=== PATIENT | female | born 1980 | race Caucasian/White ===

== ENCOUNTER 2021-04-21 09:18 | Outpatient (REF) | payer MEDICAID, SELFPAY ==
[2021-04-21 10:08] LABS: COVID-19 Test Positive (Negative); IDNOW Serial# 16C4AD1C
== END 2021-04-21 09:19 | disposition home or self-care (01) ==
LOC: HO.LAB 09:18
PROVIDERS: Visit Provider Internal Medicine
DX: Z20.822 Contact with and (suspected) exposure to COVID-19 (principal)
CPT/HCPCS: 87635; C9803

== ENCOUNTER 2023-08-28 08:34 | Emergency (ER) | payer MEDICAID, SELFPAY ==
[2023-08-28 09:18] VITALS: BP 113/85; PULSE 85; RESP 18; TEMP 36.8; O2SAT 98; BMI 34.6
[2023-08-28 09:56] LABS: MANUAL DIFF FLAG NO
[2023-08-28 10:08] LABS: Basophils Percent Auto 0.5 % (0-2); Eosinophils Percent Auto 0.4 % (0-4); Hemoglobin 14.3 g/dl (12.0-16.0); Imm Gran Abs Auto 0.02 X10*3/uL (0.00-0.03); Imm Gran Pct Auto 0.2 % (0.0-0.4); Lymphocytes Absolute Auto 1.9 X10*3/uL (1.2-4.9); Lymphocytes Percent Auto 23.3 % (20-40); Mean Corpuscular Hemoglobin 30.8 pg (27.0-33.0); Mean Corpuscular Volume 90.3 fL (80.0-98.0); Mean Platelet Volume 10.1 fL (9.4-12.3); Monocytes Absolute Auto 0.7 X10*3/uL (0.1-1.2); Monocytes Percent Auto 8.4 % (2-11); Neutrophils Absolute Auto 5.4 x10*3/uL (2.0-8.3); Neutrophils Percent Auto 67.2 % (45-73); Platelet Count 290 X10*3/uL (160-400); Red Blood Count 4.65 X10*6/uL (4.20-5.50); Red Cell Distribution Width 13.1 % (11.0-16.0); White Blood Count 8.1 X10*3/uL (4.8-10.8)
[2023-08-28 10:16] LABS: Alanine Aminotransferase 18 U/L (0-31); Albumin Level 4.3 g/dL (3.5-5.0); Alkaline Phosphatase 63 U/L (39-117); Anion Gap 14 (12-20); Aspartate Amino Transferase 20 U/L (5-31); Bilirubin Total 0.5 mg/dL (0.0-1.0); Blood Urea Nitrogen 9 mg/dL (9-16); Calcium 8.9 mg/dL (8.4-10.2); Carbon Dioxide 21 mmol/L (22-29); Chloride 110 mmol/L (96-108); Creatinine Clr Calc Pharmacy 112.5; Estimated Glomerular Filt Rate > 60; Glucose Random 101 mg/dL (60-115); Potassium 4.5 mmol/L (3.3-5.1); Sodium 140 mmol/L (135-145); Total Protein 7.2 g/dL (6.5-8.0)
--- NOTE | 2023-08-28 11:29 | ED_ITS ---
HPI - Dental/Oral General Chief complaint: Dental/Oral Stated complaint: Swelling R side of face Time Seen by Provider: 08/28/23 11:19 Source: patient and RN notes reviewed Mode of arrival: ambulatory Limitations: no limitations History of Present Illness ED Provider: Dorie Hurst PA-C HPI Narrative: This is a 43-year-old female who presents to the emergency department with complaints of right upper dental pain since yesterday. Patient reports that she has poor dentition and states that yesterday she noticed pain to her upper tooth. She states that when she woke up in the middle of the night she felt right-sided facial swelling. She has been taking ibuprofen and Tylenol for her symptoms which has provided her with some relief. She has also been gargling with diluted hydrogen peroxide and saltwater with some relief. She does not have a dentist at this time. She denies any fevers or chills. No other complaints or concerns at this time. MD Complaint: tooth pain Location: Tooth # (3) Onset (ago): day(s) Duration: constant Severity: moderate Relieving factors: NSAIDs Exacerbating factors: chewing Context: history of dental caries and poor dental care Associated symptoms: gum swelling Treatment prior to arrival: none Related Data Previous Rx's ?Medication ?Instructions ?Recorded acetaminophen 500 mg tablet 500 mg PO Q6H PRN fever or pain 08/28/23 (Tylenol Extra Strength) #30 tabs clindamycin HCl 300 mg capsule 300 mg PO TID 7 days #21 caps 08/28/23 ibuprofen 600 mg tablet 600 mg PO Q6H PRN fever or pain 08/28/23 #30 tabs Allergies Allergy/AdvReac Type Severity Reaction Status Date / Time Sulfa (Sulfonamide Allergy Unknown HIVES, rash Verified 08/28/23 09:22 Antibiotics) [Sulfa (Sulfonamides)] amoxicillin Allergy Rash Verified 08/28/23 11:41 Sulfas Allergy Unknown Hives Uncoded 08/28/23 09:22 Review of Systems 2 Review of Systems: Yes all other systems are reviewed and are negative PMFSH Past Medical History Attestation statement: The following information was validated with the patient. Social History Social History Advance Directives: No Advance Directives Information Provided: No Physical Exam 2 Vital Signs: Vital Signs: Last Vital Signs Temp 97.8 F 08/28/23 12:15 Pulse 63 08/28/23 12:15 Resp 18 08/28/23 12:15 BP 119/82 08/28/23 12:15 Pulse Ox 97 08/28/23 12:15 O2 Del Method Room Air 08/28/23 12:15 BMI result Body Mass Index 34.6 Course Reevaluation(s) Reevaluation #1: needle aspiration performed on dental abscess with moderate amount of purulence expressed. Tolerated well. Sxs consistent with dental abscess. d/c on clindamycin due to allergy and given dental referrall. Given return precautions. Pt stable for d.c. Medical Decision Making Medical Decision Making MDM Narrative: This is a 43-year-old female who presents emergency department with complaints of right upper dental pain and right-sided facial swelling since yesterday. She noticed some pain yesterday and noticed this morning her right side of her face was swollen. On arrival, vital signs within normal limits. She is speaking full sentences, she is afebrile nontoxic-appearing. Right side of face is moderately edematous. Poor dentition throughout, right upper tooth 3 and 4 tender to palpation, broken, with periapical abscess noted. Abscess is fluctuant therefore will attempt to drain. Differential Diagnosis Differential Diagnoses: The differential diagnosis associated with the presentation includes Dental abscess, dental decay, dental caries, facial swelling Lab Data 08/28/23 09:51 08/28/23 09:51 Labs: Lab Results 08/28/23 Range/Units 09:51 WBC 8.1 (4.8-10.8) X10*3/uL RBC 4.65 (4.20-5.50) X10*6/uL Hgb 14.3 (12.0-16.0) g/dl Hct 42.0 (37.0-47.0) % MCV 90.3 (80.0-98.0) fL MCH 30.8 (27.0-33.0) pg MCHC 34.0 (31.0-35.0) g/dl RDW 13.1 (11.0-16.0) % Plt Count 290 (160-400) X10*3/uL MPV 10.1 (9.4-12.3) fL Immature Gran % (Auto) 0.2 (0.0-0.4) % Neut % (Auto) 67.2 (45-73) % Lymph % (Auto) 23.3 (20-40) % Hunt % (Auto) 8.4 (2-11) % Eos % (Auto) 0.4 (0-4) % Baso % (Auto) 0.5 (0-2) % Lymph # (Auto) 1.9 (1.2-4.9) X10*3/uL Hunt # (Auto) 0.7 (0.1-1.2) X10*3/uL Eos # (Auto) 0.0 (0.0-0.4) X10*3/uL Baso # (Auto) 0.0 (0.0-0.2) X10*3/uL Abs Immat Gran (auto) 0.02 (0.00-0.03) X10*3/uL Absolute Neuts (auto) 5.4 (2.0-8.3) x10*3/uL Absolute Nucleated RBC 0.000 (0.0-0.012) X10*3/uL Nucleated RBC % (auto) 0.0 (0.0-0.2) /100WBC Sodium 140 (135-145) mmol/L Potassium 4.5 (3.3-5.1) mmol/L Chloride 110 H (96-108) mmol/L Carbon Dioxide 21 L (22-29) mmol/L Anion Gap 14 (12-20) BUN 9 (9-16) mg/dL Creatinine 0.68 (0.5-1.4) mg/dL Estim Creat Clear Calc 112.5 Estimated GFR > 60 Random Glucose 101 (60-115) mg/dL Calcium 8.9 (8.4-10.2) mg/dL Total Bilirubin 0.5 (0.0-1.0) mg/dL AST 20 (5-31) U/L ALT 18 (0-31) U/L Alkaline Phosphatase 63 (39-117) U/L Total Protein 7.2 (6.5-8.0) g/dL Albumin 4.3 (3.5-5.0) g/dL Procedures Abscess I/D Site: oral Side (if applicable): right Local Anesthetic: other anesthetic (topical lidocaine (lollicane)) Technique: needle aspiration Amount of fluid expressed (mL): 4 Sent for culture/gram staining?: No Irrigation: Yes Packing used?: none Discharge Plan Discharge Clinical Impression: Gingival abscess, Dental abscess Patient Disposition: Home, Self-Care Instructions: Gingivitis (ED) Additional Instructions: You were seen in the emergency department due to a dental infection. You had an abscess in your right upper gumline that we drained. Keep performing saltwater rinses with warm water. Take prescribed clindamycin as directed finish the entire course even if you are feeling better. Alternate between ibuprofen and Tylenol as needed for pain. If any new or worsening symptoms occur including but not limited to fevers, worsening swelling, difficulty opening and closing her jaw, difficulty swallowing or breathing, please return for re-evaluation. [facility] [phone] [place] [address] Prescriptions: New clindamycin HCl 300 mg capsule 300 mg PO TID 7 Days Qty: 21 0RF ibuprofen 600 mg tablet 600 mg PO Q6H PRN (Reason: fever or pain) Qty: 30 0RF acetaminophen [Tylenol Extra Strength] 500 mg tablet 500 mg PO Q6H PRN (Reason: fever or pain) Qty: 30 0RF Interventions: ED Discharge Assessment Last Done: 08/28/23 12:15 Discharge Date/Time: 08/28/23 12:17 Print Language: Greenlandic
[2023-08-28 12:15] VITALS: BP 119/82; PULSE 63; RESP 18; TEMP 36.6; O2SAT 97
== END 2023-08-28 12:17 | disposition home or self-care (01) ==
PROVIDERS: Emergency Provider Student in an Organized Health Care Education/Training Program
DX: K04.7 Periapical abscess without sinus (principal); K05.20 Aggressive periodontitis, unspecified
CPT/HCPCS: 10160; 36415; 80053; 85025; 99282; 99283

== ENCOUNTER 2024-06-20 09:54 | Outpatient (REF) | payer MEDICAID, SELFPAY ==
[2024-06-20 11:15] LABS: MANUAL DIFF FLAG NO
--- OUTSIDE RECORDS SUMMARY | 2024-06-20 11:18 | XMS_ITS | Encounter Summary ---
Author Organization [employer] Address [address] [facility] 7 [place] [address] Care Team Providers Care Lockstitch Machine Operator Name Role Phone Unavailable Primary Care Provider Unavailabl e Reason for Visit * Reason Comments Pre-visit Planning SDOH Screening negat sanjeev and Tobacco screening positive Encounter Details Date Type Department Care Team ([facility] st Contact Info) Description 06/12/2024 Patient Outreach [facility] [address] [place] [address] Tish Montague NP [address] [place] [address] Pre-visit Planning (SDOH Screening negative and Tobacco screening positive) Social History Tobacco Use Types Packs/Day Years Used Date Smoking Tobacco: Never Assessed Housing Stability Answer Date Recorded What is your housing situation today? I have radha quintana 06/12/[address] you li ve. Do you have problems with any of the following? None of the above 06/12/2024 Food Insecurity Answer Date Recorded Within the past 12 months, y ou worried that your food would run out before you got money to buy more: Never True 06/12/2024 Within the past 12 months,th e food you bought just didn't last and you didn't have enough money to get more: Never True 02/2025 Transportation Answer Date Recorded In the past 12 months, has l ack of transportation kept you from medical appts, meetings, work or from getting things needed for daily living? No 06/12/2024 Utilities Answer Date Recorded In the past 12 months, has t he electric, gas, oil or water company threatened to shut off services in your home? No 06/12/2024 Internet Access Answer Date Recorded Internet Access Q1 Yes 06/12/2024 Internet Access Q2 Not on file 06/12/2024 Comments Unknown Sex and Gender Information Value Date Recorded Sex Assigned at Female 01/31/2024 1:41 PM EDT Legal Sex Female 1:39 PM EDT Gender Identity Female 01/31/2024 1:41 PM EDT Sexual Orientation Don't know 01/31/2024 1: 58 PM EDT documented as of this encounter Progress Notes * Tana Espinal - 06/12/2024 12:45 PM EDT ALLIE Mackenzie placed successful outbound call to patient for pre-visit planning. Patient name and confirmed. Patient confirms appt date and time, and has transportation arrangements. Biggest concern for appointment at this time is hernia on stomach over 5 years, ? Diabetes. Patient advised to bring to appointment a photo id and insurance card. Appropriate screenings completed in anticipation of appointment. Tobacco screening positive. Will need counseling. documented in this encounter Plan of Treatment Not on file documented as of this encounter Visit Diagnoses Not on filedocumented in this encounter
--- OUTSIDE RECORDS SUMMARY | 2024-06-20 11:18 | XMS_ITS | Encounter Summary ---
Author Organization [employer] Address [address] [facility] 7t [place] [address] Care Team Providers Care Restaurant Hourly Team Member Name Role Phone Tish Montague NP Primary Care Provider [phone] Reason for Referral * Imaging (Routine) - Authorized Specialty Diagnoses / Procedures Referred By Contngoc t Referred To Contact Radiology Diagnoses Mass of soft tissue of abdomen Procedures US SOFT TISSUE Tish Montague NP [address] [place] [address] Phone: tel: fax: [address] Phone: tel: fax: Referral ID Status Reason Start Date Expiration Date V isits Requested Visits Authorized [id number] Authorized 06/20/2024 06/20/2025 1 1 Encounter Details Date Type Department Care Team (Latest Contact Info) Description 06/20/2024 9:00 AM EDT Office Visit [facility] [address] [place] [address] Tish Montague NP [address] [place] [address] Hyperglycemia (Primary Dx); Dietary counseling; Exercise counseling; Mass of soft tissue of abdomen; Other depression Social History Tobacco Use Types Packs/Day Years Used Date Smoking Tobacco: Every Day Cigarettes Tobacco Cessation:Ready to Q uit: Not Asked; Counseling Given: Not Answered Depression Answer Date Recorded Patient Health Questionnaire-9 Score 8 06/20/2024 Patient Health Questionnaire-9 Score 8 06/20/2024 Last PHQ-9: Questionnaire Data Not on file 0 06/20/2024 Housing Stability Answer Date Recorded What is [...] off services in your home? No 06/12/2024 Depression Answer Date Recorded Patient Health Questionnaire-2 Score 2 06/20/2024 Internet Access Answer Date Recorded Internet Access Q1 Yes 06/12/2024 Internet Access Q2 Not on file 06/12/2024 Comments Unknown Sex and Gender Information Value Date Recorded Sex Assigned at Female 01/31/2024 1:41 PM EDT Legal Sex Female 1:39 PM EDT Gender Identity Female 01/31/2024 1:41 PM EDT Sexual Orientation Don't know 01/31/2024 1: 58 PM EDT documented as of this encounter Last Filed Vital Signs Vital Sign Reading Time Taken Comments Blood Pressure 115/84 06/20/2024 9:03 AM EDT Pulse 90 06/20/2024 9:03 AM EDT Temperature 36.3 ??C (97.4 ??F) 06/20/2024 9:03 AM ED T Respiratory Rate 18 06/20/2024 9:03 AM EDT Oxygen Saturation 98% 06/20/2024 9:03 AM EDT Inhaled Oxygen Concentration - - Weight 96.4 kg (212 lb 9.6 oz) 06/20/2024 9:03 A M EDT Height 157.5 cm (5' 2 ) 06/20/2024 9:03 AM EDT Body Mass Index 38.89 06/20/2024 9:03 AM EDT documented in this encounter Plan of Treatment Scheduled Orders Name Type Priority Associated Diagnoses Orde r Schedule US SOFT TISSUE Imaging Routine Mass of soft tissue of abdomen Expected: 06/20/2024, Expires: 06/20/2025 Comprehensive Metabolic Panel Lab Routine Hyperglycemia Other depression Expected: 06/20/2024 (Approximate), Expires: 06/20/2025 CBC auto differential Lab Routine Hyperglycemia Other depression Expected: 06/20/2024 (Approximate), Expires: 06/20/2025 Hemoglobin A1c Lab Routine Hyperglycemia Other depression Expected: 06/20/2024 (Approximate), Expires: 06/20/2025 Lipid Panel, Standard Lab Routine Hyperglycemia Other depression Expected: 06/20/2024 (Approximate), Expires: 06/20/2025 documented as of this encounter Procedures Procedure Name Priority Date/Time Associated Diagnosis Comments POCT GLYCATED HEMOGLOBIN, TOTAL Routine 06/20/2024 9:23 AM EDT Hyperglycemia POCT GLUCOSE Routine 06/20/2024 9:23 AM EDT Hyperglycemia documented in this encounter Results * (ABNORMAL) POCT HGB A1C (06/20/2024 9:23 AM EDT) Hemoglobin A1C 6.1(A) 4.0 - 6.0 % QC Media Lot # [id number] Lot# Expiration Date 110,426 Blood 06/20/2024 9:23 AM EDT us Tish Montague NP POINT OF CARE TEST ENTER/EDIT OR DERABLES Final Result * POCT Glucose (06/20/2024 9:23 AM EDT) Glucose Blood, POC 121 60 - 200 mg/dL QC Media Lot # [id number] Lot# Expiration Date 82,625 Blood Capillary blood specimen / Unknown 06/20/2024 9:23 AM EDT us Tish Montague NP POINT OF CARE TEST ENTER/EDIT OR DERABLES Final Result documented in this encounter Visit Diagnoses Diagnosis Hyperglycemia- Primary Other abnormal glucose Dietary counseling Dietary surveillance and counseling Exercise counseling Mass of soft tissue of abdomen Other depression documented in this encounter Additional Health Concerns Assessment Noted Time PHQ-9 Depression Total Score: 8 06/21/19 25 9:26 AM EDT documented as of this encounter Care Teams Restaurant Hourly Team Member Relationship Specialty Start Date End Date Tish Montague NP [address] [place] [address] PCP - General Family Medicine 06/20/24 documented as of this encounter
--- OUTSIDE RECORDS SUMMARY | 2024-06-20 11:18 | XMS_ITS | Clinical Summary ---
Author Organization [employer] [facility] Address [address] [facility] 7t [place] [address] Care Team Providers Care Engineering Test Mechanic Name Role Phone Tish Montague NP Primary Care Provider [phone] Allergies Active Allergy Reactions Criticality Noted Date Comments Sulfa Antibiotics Unknown 06/20/2024 Medications buPROPion SR (Wellbutrin SR) 100 MG 12 hr tablet Take 1 tablet (100 mg) by mouth Once per day for 3 days, THEN 1 tablet (100 mg) 2 times daily for 27 days. Do not crush, chew, or split.. 57 tablet 06/20/2024 Active Active Problems Problem Noted Date Diagnosed Date Hyperglycemia 06/20/2024 Exercise counseling 06/20/2024 Dietary counseling 06/20/2024 Mass of soft tissue of abdomen 06/20/2024 Depression 06/20/2024 Encounters Date Type Department Care Team Description 06/20/2024 9:00 AM EDT Office Visit [facility] [address] [place] [address] [phone] Tish Montague NP Hyperglycemia (Primary Dx); Dietary counseling; Exercise counseling; Mass of soft tissue of abdomen; Other depression 06/20/2024 Travel 06/15/2024 Population Health Risk Score [facility] (C3) Department [address] [id number] Provider, Population Health Generic 06/12/2024 Patient Outreach [facility] [address] [place] [phone] Tish Montague NP Pre-visit Planning (SDOH Screening negative and Tobacco screening positive) 06/06/2024 Telephone [facility] [address] [place] [phone] Laila Harrell MA Chart Prep 04/06/2024 Telephone [facility] [address] [place] [address] [phone] Harjit Stock MD New pt appt from Last 3 Months Social History Tobacco Use Types Packs/Day Years [...] your housing situation today? I have radha sing 06/12/[address] you li [...] Don't know 01/31/2024 1: 58 PM EDT Last Filed Vital Signs Vital Sign Reading [...] Mass Index 38.89 06/20/2024 9:03 AM EDT Plan of Treatment Health Maintenance Due Date Last Done Comments HIV Screening 1980 Lipid Panel 1980 Family Planning (PISQ) 1995 Hepatitis C Screening 1998 Hepatitis B Vaccines (1 of 3 - 19+ 3-dose series) 1999 Pneumococcal Vaccine: Pediatrics (0 to 5 Years) and At-Risk Patients (6 to 49) Years) (1 of 2 - PCV) 1999 Pap Smear 2001 Cervical Cancer Screening 2010 HPV/Cotest 2010 Mammogram 2020 COVID-19 Vaccine (3 - 2023-2 5 season) 2023 05/26/2021, 05/05/2021 Influenza Vaccine (#1) 2023 Alcohol/Substance Use Screening 06/20/2025 06/20/2024 Depression Screening 06/20/2025 06/20/2024, 06/20/2024 Diabetes: Hemoglobin A1C 06/20/2025 06/20/2024 SDOH Screening 06/20/2025 06/20/2024 Tobacco Screening 06/20/2025 06/20/2024 DTaP/Tdap/Td Vaccines (2 - T d or Tdap) 08/09/2028 08/09/2018 Zoster Vaccines (1 of 2) 2030 RSV Patients and Patients Aged 60 years or older (1 - 1-dose 75+ series) 2055 HIB Vaccines Aged Out No longer eligi ble based on patient's age to complete this topic HPV Vaccines Aged Out No longer eligi ble based on patient's age to complete this topic Hepatitis A Vaccines Aged Out No long er eligible based on patient's age to complete this topic IPV Vaccines Aged Out No longer eligi ble based on patient's age to complete this topic Meningococcal Vaccine Aged Out No isrrael meagan eligible based on patient's age to complete this topic RSV under 20 months Aged Out No longe r eligible based on patient's age to complete this topic Rotavirus Vaccines Aged Out No longer eligible based on patient's age to complete this topic Procedures Procedure Name Priority Date/Time Associated Diagnosis Comments POCT GLYCATED HEMOGLOBIN, TOTAL Routine 06/20/2024 9:23 AM EDT Hyperglycemia POCT GLUCOSE Routine 06/20/2024 9:23 AM EDT Hyperglycemia from Last 3 Months Results * (ABNORMAL) POCT HGB A1C (06/20/2024 9:23 AM EDT) Hemoglobin A1C 6.1(A) 4.0 - 6.0 % QC Media Lot # [id number] Lot# Expiration Date 110,426 Blood 06/20/2024 9:23 AM EDT Tish Montague MEDICAL APPOINTMENT SCHEDULER POINT OF CARE TEST ENTER/EDIT OR DERABLES Final Result * POCT Glucose (06/20/2024 9:23 AM EDT) Glucose Blood, POC 121 60 - 200 mg/dL QC Media Lot # [id number] Lot# Expiration Date 82,625 Blood Capillary blood specimen / Unknown 06/20/2024 9:23 AM EDT Tish Montague MEDICAL APPOINTMENT SCHEDULER POINT OF CARE TEST ENTER/EDIT OR DERABLES Final Result from Last 3 Months Insurance [facility] C3 Care Teams Engineering Test Mechanic Relationship Specialty Start Date End Date Tish Montague NP [address] [place] [address] PCP - General Family Medicine 06/20/24
--- OUTSIDE RECORDS SUMMARY | 2024-06-20 11:18 | XMS_ITS | Encounter Summary ---
Author Organization [employer] Address [address] [facility] [address]t [place] [address] Care Team Providers Care Baby Registry Sales Consultant Name Role Phone Unavailable Primary Care Provider Unavailabl e Encounter Details Date Type Department Care Team (Late st Contact Info) Description 06/15/2024 Population Health Risk Score [facility] (C3) Department [address] [facility] [address] [place] [address] Provider, Population Health Generic Social History Tobacco Use Types Packs/Day Years Used Date Smoking Tobacco: Never Assessed Housing Stability Answer Date Recorded What is your housing situation today? I have radah quintana 06/12/[address] you [...] PM EDT documented as of this encounter Plan of Treatment Not on file documented as of this encounter Visit Diagnoses Not on filedocumented in this encounter
--- OUTSIDE RECORDS SUMMARY | 2024-06-20 11:18 | XMS_ITS | Encounter Summary ---
Author Organization [employer] Address [address] [facility] 7t [place] [address] Care Team Providers Care Community Arts Officer Name Role Phone SmileyTish catnu RAVINDRA Primary Care Provider [phone] Encounter Details Date Type Department Care Team (Latest Contact Info) Description 06/20/2024 Travel Social History Tobacco Use Types Packs/Day Years Used Date Smoking Tobacco: Every Day Cigarettes Depression Answer Date Recorded Patient Health Questionnaire-9 [...] Diagnoses Not on filedocumented in this encounter Additional Health Concerns Assessment Noted Time PHQ-9 Depression Total Score: 8 06/21/19 9:26 AM EDT documented as of this encounter Care Teams Community Arts Officer Relationship Specialty Start Date End Date Tish Montague NP [address] [place] [phone] PCP - General Family Medicine 06/20/24 documented as of this encounter
--- OUTSIDE RECORDS SUMMARY | 2024-06-20 11:18 | XMS_ITS | Encounter Summary ---
Author Organization [employer] Address [address] [place] [address] 7 [place] [address] Care Team Providers Care Clinical Ob Name Role Phone Unavailable Primary Care Provider Unavailabl e Reason for Visit * Reason Onset Date Comments Chart Prep 06/06/2024 Encounter Details Date Type Department Care Team (Late st Contact Info) Description 06/06/2024 Telephone [facility] [address] [place] [address] Laila Harrell MA Chart Prep Social History Tobacco Use Types Packs/Day Years Used Date Smoking Tobacco: Never Assessed Comments Unknown Sex and Gender Information Value Date Recorded Sex Assigned at Female 01/31/2024 1:41 PM EDT Legal Sex Female 1:39 PM EDT Gender Identity Female 01/31/2024 1:41 PM EDT Sexual Orientation Don't know 01/31/2024 1: 58 PM EDT documented as of this encounter Miscellaneous Notes * Telephone Encounter - Laila Harrell MA - 06/06/2024 10:52 AM EST Chart Prep Labs: not applicable Images: not applicable Vaccines due: Covid, Hep B, Flu Referrals: none Screenings: mammogram , HIV, Hep C, Cervical cancer Overdue care gaps: Sbirt, SDOH, PHQ-9, Oral Health documented in this encounter Plan of Treatment Not on file documented as of this encounter Visit Diagnoses Not on filedocumented in this encounter
[2024-06-20 11:33] LABS: Basophils Percent Auto 0.2 % (0-2); Eosinophils Percent Auto 0.7 % (0-4); Hematocrit 40.2 % (37.0-47.0); Hemoglobin 13.7 g/dl (12.0-16.0); Imm Gran Abs Auto 0.03 X10*3/uL (0.00-0.03); Imm Gran Pct Auto 0.5 % (0.0-0.4); Lymphocytes Absolute Auto 1.9 X10*3/uL (1.2-4.9); Mean Corpuscular HGB Conc 34.1 g/dl (31.0-35.0); Mean Corpuscular Hemoglobin 30.2 pg (27.0-33.0); Mean Corpuscular Volume 88.5 fL (80.0-98.0); Mean Platelet Volume 10.1 fL (9.4-12.3); Monocytes Absolute Auto 0.4 X10*3/uL (0.1-1.2); Monocytes Percent Auto 7.4 % (2-11); Neutrophils Absolute Auto 3.5 x10*3/uL (2.0-8.3); Neutrophils Percent Auto 59.2 % (45-73); Platelet Count 315 X10*3/uL (160-400); Red Blood Count 4.54 X10*6/uL (4.20-5.50); Red Cell Distribution Width 12.6 % (11.0-16.0); White Blood Count 5.8 X10*3/uL (4.8-10.8)
[2024-06-20 11:43] LABS: Estimated Average Glucose 120 mg/dL; Hemoglobin A1C 145.8579 umol/L; Hemoglobin A1c % 5.8 % (<6.0); Total Hemoglobin (HGBA1C) 3642.7768 umol/L
[2024-06-20 11:53] LABS: Alanine Aminotransferase 16 U/L (0-31); Albumin Level 4.3 g/dL (3.5-5.0); Alkaline Phosphatase 62 U/L (39-117); Anion Gap 10 (12-20); Aspartate Amino Transferase 19 U/L (5-31); Bilirubin Total 0.3 mg/dL (0.0-1.0); Blood Urea Nitrogen 10 mg/dL (9-16); Calcium 9.2 mg/dL (8.4-10.2); Carbon Dioxide 26 mmol/L (22-29); Chloride 109 mmol/L (96-108); Cholesterol 156 mg/dL (<200); Estimated Glomerular Filt Rate > 60; Glucose Random 104 mg/dL (60-115); HDL Cholesterol 46 mg/dL (>40); LDL Cholesterol Calculated 99 mg/dL (<100); Potassium 4.6 mmol/L (3.3-5.1); Sodium 140 mmol/L (135-145); Total Protein 7.7 g/dL (6.5-8.0); Triglycerides 57 mg/dL (<150)
== END 2024-06-20 09:55 | disposition home or self-care (01) ==
LOC: HO.HHCL 09:54
PROVIDERS: Visit Provider Nurse Practitioner Family
DX: R73.9 Hyperglycemia, unspecified (principal); F32.89 Other specified depressive episodes
CPT/HCPCS: 36415; 80053; 80061; 83036; 85025

== ENCOUNTER 2024-08-13 10:24 | Outpatient (REF) | payer MEDICAID, SELFPAY ==
--- NOTE | ~2024-08-13 | US_ITS ---
CLINICAL HISTORY: 8 CM SUM UMBILICAL PROTRUSION HX OF ABD SURGERY Ultrasound abdominal wall Comparison: None Findings: Periumbilical ventral hernia contains fat. Echogenic shadowing likely indicates bowel in hernia. Shadowing obscures findings and limits assessment. Impression: Periumbilical ventral hernia containing fat and bowel This document has been electronically signed by: Suman Davis MD on 08/13/2024 19:42:28
--- OUTSIDE RECORDS SUMMARY | 2024-08-13 11:01 | XMS_ITS | Clinical Summary ---
Author Organization [employer] Address [address] [facility] [address] [place] [address] Care Team Providers Care Landscape Management Technician Name Role Phone Tish Montague NP Primary Care Provider [phone] Allergies Active Allergy Reactions Criticality Noted Date Comments Sulfa Antibiotics Unknown 06/20/2024 Medications buPROPion SR (Wellbutrin SR) 100 MG 12 hr tablet Take 1 tablet (100 mg) by mouth Once per day for 3 days, THEN 1 tablet (100 mg) 2 times daily for 27 days. Do not crush, chew, or split.. 57 tablet 5 025 Active buPROPion SR (Wellbutrin SR) 100 MG 12 hr tablet Take 1 tablet (100 mg) by mouth Once per day for 3 days, THEN 1 tablet (100 mg) 2 times daily for 27 days. Do not crush, chew, or split.. 57 tablet 5 025 Discontinued(Re order (will not trigger notification to Pharmacy)) Active Problems Problem Noted Date Diagnosed Date Hyperglycemia 06/20/2024 Exercise counseling 06/20/2024 Dietary counseling 06/20/2024 Mass of soft tissue of abdomen 06/20/2024 Depression 06/20/2024 Encounters Date Type Department Care Team Description 07/19/2024 Telephone [facility] MED[facility] [address] [place], [place] [phone] Tish Montague NP Results 07/18/2024 Refill [facility] [address] [place], [place] [phone] Tish Montague NP 07/02/2024 Telephone [facility] [address] [place], [place] [phone] Tish Montague NP 06/20/2024 9:00 AM EDT Office Visit [facility] [address] [place] [address] Tish Montague NP Hyperglycemia (Primary Dx); Dietary counseling; Exercise counseling; Mass of soft tissue of abdomen; Other depression 06/20/2024 Travel 06/15/2024 Population Health Risk Score [facility] () Department [address] [place] [phone] Provider, Population Health Generic 06/12/2024 Patient Outreach [facility]IATRICS [address] [place] [address] Tish Montague NP Pre-visit Planning (SDOH Screening negative and Tobacco screening positive) 06/06/2024 Telephone [facility] MED[facility] [address] [place] [address] Laila Harrell MA Chart Prep from Last 3 Months Social History Tobacco [...] 06/20/2024 9:03 AM EDT Plan of Treatment Upcoming Encounters Date Type Department Care Team (Late st Contact Info) Description 09/24/2024 11:15 AM EDT Office Visit [facility] [address] [place] [address] Tish Montague NP [address] [place] [address] Health Maintenance Due Date Last Done Comments HIV Screening 1980 Family Planning (PISQ) 1995 Hepatitis C Screening 1998 Hepatitis B Vaccines (1 of - + 3-dose series) 1999 Pneumococcal Vaccine: Pediatrics (0 to 5 Years) and At-Risk Patients (6 to 49) Years) (1 of 2 - PCV) 1999 Pap Smear 2001 Cervical Cancer Screening 2010 HPV/Cotest 2010 Mammogram 2020 COVID-19 Vaccine (2023-2 5 season) 2023 05/26/2021, 05/05/2021 Influenza Vaccine (#1) 2023 Alcohol/Substance Use Screening 06/20/2025 06/20/2024 Depression Screening 06/20/2025 06/20/2024, 06/20/2024 Diabetes: Hemoglobin A1C 06/20/2025 025, 06/20/2024 SDOH Screening 06/20/2025 06/20/2024 Tobacco Screening 06/20/2025 06/20/2024 DTaP/Tdap/Td Vaccines (2 - T d or Tdap) 08/09/2028 08/09/2018 Lipid Panel 06/20/2029 06/20/2024 Zoster Vaccines (1 of 2) 2030 RSV [...] Procedure Name Priority Date/Time Associated Diagnosis Comments LIPID PANEL, STANDARD Routine 06/20/2024 10:03 AM EDT Hyperglycemia Other depression HEMOGLOBIN A1C Routine 06/20/2024 10:03 AM EDT Hyperglycemia Other depression CBC WITH AUTO DIFFERENTIAL Routine 06/20/2024 10:03 AM EDT Hyperglycemia Other depression COMPREHENSIVE METABOLIC PANEL Routine 06/20/2024 10:03 AM EDT Hyperglycemia Other depression POCT GLYCATED HEMOGLOBIN, TOTAL Routine 06/20/2024 9:23 AM EDT Hyperglycemia POCT GLUCOSE Routine 06/20/2024 9:23 AM EDT Hyperglycemia from Last 3 Months Results * (ABNORMAL) CBC auto differential (06/20/2024 10:03 AM EDT) White Blood Count 5.8 4.8 - 10.8 X10*3/uL [facility] Red Blood Count 4.54 4.20 - 5.50 X10*6/uL [facility] Hemoglobin 13.7 12.0 - 16.0 g/dl [facility] Hematocrit 40.2 37.0 - 47.0 % [facility] Mean Corpuscular Volume 88.5 80.0 - 98.0 fL [facility] Mean Corpuscular Hemoglobin 30.2 27.0 - 33.0 pg [facility] Mean Corpuscular HGB Conc 34.1 31.0 - 35.0 g/dl [facility] Red Cell Distribution Width 12.6 11.0 - 16.0 % [facility] Platelet Count 315 160 - 400 X10*3/uL [facility] Mean Platelet Volume 10.1 9.4 - 12.3 fL [facility] Neutrophils Percent Auto 59.2 45 - 73 % [facility] Imm Gran Pct Auto 0.5(H) 0.0 - 0.4 % [facility] Lymphocytes Percent Auto 32.0 20 - 40 % [facility] Monocytes Percent Auto 7.4 2 - 11 % [facility] Eosinophils Percent Auto 0.7 0 - 4 % [facility] Basophils Percent Auto 0.2 0 - 2 % [facility] NRBC Pct Auto 0.0 0.0 - 0.2 /100WBC [facility] Neutrophils Absolute Auto 3.5 2.0 - 8.3 x10*3/uL [facility] Imm Gran Abs Auto 0.03 0.00 - 0.03 X10*3/uL [facility] Lymphocytes Absolute Auto 1.9 1.2 - 4.9 X10*3/uL [facility] Monocytes Absolute Auto 0.4 0.1 - 1.2 X10*3/uL [facility] Eosinophils Absolute Auto 0.0 0.0 - 0.4 X10*3/uL [facility] Basophils Absolute Auto 0.0 0.0 - 0.2 X10*3/uL [facility] NRBC Abs Auto 0.000 0.0 - 0.012 X10*3/uL [facility] Blood Venous blood specimen / Unknown 06/20/2024 10:03 AM EDT 06/20/2024 11:12 AM EDT Tish Montague NP LAB BLOOD ORDERABLES Final Resul t Performing Organization Address [facility] de Phone Number [facility] [address] [place] [phone] * Hemoglobin A1c (06/20/2024 10:03 AM EDT) Hemoglobin A1c 5.8 <6.0 % [facility] Comment:Hemoglobin A1C Refer ence Range Adults: 4.8 - 6.0 % Non diabetic: < 6.0 % Goal: < 7.0 %Additional Action Suggested: > 8.0 %Note: Hemoglobin A1c results are invalid for patients with abnormal amounts of HbF. Blood transfusions may impact the HbA1c concentration in the patient sample. Estimated Average Glucose 120 mg/dL [facility] Comment:eAG = Estimated ave rage glucose which is %A1C expressed asaverage glucose, using the formula of the R5T-LoufmwzKekbyek Glucose study (ADAG), Diabetes Care, Vol.31,#8,Nov. 2007 Blood Venous blood specimen / Unknown 06/20/2024 10:03 AM EDT 06/20/2024 11:12 AM EDT Tish Montague [employer]OBI[employer]ESS[employer] SALESPERSON LAB BLOOD ORDERABLES Final Resul t Performing Organization Address [facility] Co de Phone Number [facility] [address] [place] [phone] * Lipid Panel, Standard (06/20/2024 10:03 AM EDT) Triglycerides 57 <150 mg/dL [facility] Comment:Desirable Triglyceri de: less than 150 mg/dLBorderline High Triglyceride 150-199 mg/dLHigh Triglyceride: 200-499 mg/dLVery High Triglyceride: greater than or equal to 5OO mg/dL Cholesterol 156 <200 mg/dL [facility] Comment:Desirable Cholestero l: less than 200 mg/dLBorderline High Cholesterol: 200-239 mg/dLHigh Cholesterol: greater than 239 mg/dL LDL Cholesterol Calculated 99 <100 mg/dL [facility] Comment:Desirable LDL: less than 100 mg/dLNear Optimal/Above Optimal LDL: 110- 129 mg/dLBorderline High LDL: 130-159 mg/dLHigh LDL: 160-189 mg/dLVery High LDL: greater than or equal to 190 mg/dL HDL Cholesterol 46 >40 mg/dL [facility] Comment:Desirable HDL: great er than 40 mg/dL Note: This HDL assay may give artificially low results in patients with liver disease. Blood Venous blood specimen / Unknown 06/20/2024 10:03 AM EDT 06/20/2024 11:12 AM EDT us Tish Montague NP LAB BLOOD ORDERABLES Final Resul t [facility] [address] [place] [phone] * (ABNORMAL) Comprehensive Metabolic Panel (06/20/2024 10:03 AM EDT) Sodium 140 135 - 145 mmol/L [facility] Potassium 4.6 3.3 - 5.1 mmol/L [facility] Chloride 109(H) 96 - 108 mmol/L [facility] Carbon Dioxide 26 22 - 29 mmol/L [facility] Anion Gap 10(L) 12 - 20 [facility] Urea Nitrogen (BUN) 10 9 - 16 mg/dL [facility] Creatinine, Serum 0.73 0.5 - 1.4 mg/dL [facility] Estimated Glomerular Filt Rate >60 [facility] Comment:Chronic Kidney Disea se: Estimated GFR < 60 mL/min/1.90s0Mibbcc Kidney Disease: Estimated GFR < 15 mL/min/1.73m2 Glucose 104 60 - 115 mg/dL [facility] Calcium 9.2 8.4 - 10.2 mg/dL [facility] Bilirubin, Total 0.3 0.0 - 1.0 mg/dL [facility] Aspartate Amino Transferase 19 5 - 31 U/L [facility] Alanine Aminotransferase 16 0 - 31 U/L [facility] Total Protein 7.7 6.5 - 8.0 g/dL [facility] Albumin Level 4.3 3.5 - 5.0 g/dL [facility] Alkaline Phosphatase 62 39 - 117 U/L [facility] Blood Venous blood specimen / Unknown 06/20/2024 10:03 AM EDT 06/20/2024 11:12 AM EDT Tish Montague [employer]BI[employer] SALESPERSON LAB BLOOD ORDERABLES Final Resul t [facility] [address] [place], [place] [phone] * (ABNORMAL) POCT HGB A1C (06/20/2024 9:23 AM EDT) Hemoglobin A1C 6.1(A) 4.0 - 6.0 % QC Media Lot # [id number] Lot# Expiration Date [id number] Blood 06/20/2024 9:23 AM EDT Tish Montague [employer] SALESPERSON POINT OF CARE TEST ENTER/EDIT OR DERABLES Final Result * POCT Glucose (06/20/2024 9:23 AM EDT) Glucose Blood, POC 121 60 - 200 mg/dL QC Media Lot # [id number] Lot# Expiration Date 82,625 Blood Capillary blood specimen / Unknown 06/20/2024 9:23 AM EDT Tish Montague NP POINT OF CARE TEST ENTER/EDIT OR DERABLES Final Result from Last 3 Months Insurance [facility] C3 Care Teams Landscape Management Technician Relationship Specialty Start Date End Date Tish Montague NP [address] [place] [address] PCP - General Family Medicine 06/20/24
== END 2024-08-13 10:25 | disposition home or self-care (01) ==
LOC: HO.US 10:24
PROVIDERS: PCP Nurse Practitioner Family; Visit Provider Nurse Practitioner Family
DX: R19.00 Intra-abdominal and pelvic swelling, mass and lump, unspecified site (principal)
CPT/HCPCS: 76705

== ENCOUNTER → 2024-08-13 10:30 | Outpatient (BNV) | payer MEDICAID, SELFPAY | PROVIDERS: PCP Nurse Practitioner Family; Visit Provider Radiology Diagnostic Radiology | DX: K43.9 Ventral hernia without obstruction or gangrene (principal) | CPT/HCPCS: 76705 ==

== ENCOUNTER 2024-11-08 09:22 | Outpatient (AMB) | payer MEDICAID, SELFPAY ==
--- NOTE | 2024-11-08 09:24 | A.OFFVIS_ITS ---
Vital Signs 3 11/08/24 09:32 Height 5 ft 2 in Weight 200 lb BMI 36.6 BP 124/81 Blood Pressure Location Lt brachial Position Sitting Pulse 121 H Intake Visit Reasons: Periumbilical ventral hernia Intake Note: Patient is seen in office for evaluation and treatment of a periumbilical ventral hernia. Pt c/o: feels a lump above the umbilical area, has increase in size, onset over 5 yrs, had surgery for gallbladder and unsure if it was after either surgery us:08/13/24 Home Health Clinician Required: No Accompanied by: Self / Same As Patient Allergies Sulfa (Sulfonamide Antibiotics) (Sulfa (Sulfonamides)) Allergy (Unknown, Verified 11/08/24 09:30) HIVES, rash amoxicillin Allergy (Verified 11/08/24 09:30) Rash Sulfas Allergy (Unknown, Uncoded 11/08/24 09:30) Hives HPI Comments Details: Pt is a 44 yof presenting for a preoperative evaluation of a periumbilical hernia. PMH of cholecystitis and cholecystectomy, prior , current half pack a day smoker. She states she has been experiencing a bulging mass above the umbilicus for approximately five years, is unsure if this is resulting from her or the cholecystectomy. Pt states that it is worse with coughing or straining, better/goes away when laying down. She denies pain or obstructive symptoms, no N/V, can be uncomfortable after eating. Pt states she delayed getting this evaluated d/t her daughter being autistic and needing to care for her, is also concerned of the post-op/recovery period d/t her daughter being aggressive at times. [facility] Surgical History (Updated 11/08/24 @ 09:31 by BOOM Lr) Hx of section Hx laparoscopic cholecystectomy Review of Systems Const Denies anorexia and Denies poor appetite GI Denies abdominal pain, Denies change in bowel habits, Denies change in stool character, Denies constipation, Denies nausea and Denies vomiting Physical Exam Vital Signs: Last Vital Signs Pulse 121 H 11/08/24 09:32 BP 124/81 11/08/24 09:32 BMI result Body Mass Index 36.6 Const General: healthy appearing and no acute distress Orientation/consciousness: patient oriented x3 HEENT Head: Yes normocephalic and Yes atraumatic Resp Effort & Inspection: normal respiratory effort, no audible wheezes, no cough and no respiratory distress GI Other: approx. 8cm reducible hernia noted above the umbilicus. Worse with valsalva Inspection: Yes visible herniation Palpation (GI): Soft to palpation, nontender and no guarding Percussion: Yes normal to percussion Auscultation: normal bowel sounds Rectal Exam - Female: deferred Abdomen image: 2 1. 8 cm ventral/incisional hernia upper abdomen Neuro General: patient oriented x3 Extrem General: Yes no clubbing, cyanosis or edema Assessment & Plan Assessment & Plan (1) Ventral hernia: Code(s): K43.9 - Ventral hernia without obstruction or gangrene Category: Medical Qualifiers: Obstruction and gangrene presence: without obstruction or gangrene Q ualified Code(s): K43.9 - Ventral hernia without obstruction or gangrene Plan Pt is a 44 yof presenting for a preoperative evaluation of an approximately 8cm reducible periumbilical ventral hernia. She is a current half pack a day smoker with a surgical hx of a and cholecystectomy. No signs of obstruction or incarceration - patient consents to scheduled elective hernia repair. I reviewed the procedure, risks, and alternatives to repair of the ventral hernia with mesh in detail and she consents to the surgery. This will be scheduled as a short-stay surgery at her earliest convenience. Coding Level of Care Code New Pt Level 4 (32131) Diagnoses Ventral hernia without obstruction or gangrene K43.9 Obstruction and gangrene presence: without obstruction or gangrene
[2024-11-08 09:32] VITALS: BP 124/81; PULSE 121; BMI 36.6
--- OUTSIDE RECORDS SUMMARY | 2024-11-08 09:46 | XMS_ITS | Clinical Summary ---
Author Organization [employer] Address [address] [facility] [address] [place] [address] Care Team Providers Care Manager Architectural Name Role Phone Eddi Tish RAVINDRA Primary Care Provider [phone] Allergies Active Allergy Reactions Criticality Noted Date Comments Sulfa Antibiotics Unknown 06/20/2024 Medications buPROPion XL (Wellbutrin XL) 300 MG 24 hr tablet Take 1 tablet (300 mg) by mouth Once per day. Do not crush, chew, or split. 30 tablet 3 09/24/2024 Active Active Problems Problem Noted Date Diagnosed Date Left hip pain 09/24/2024 Assessment & Plan (09/24/2024 1:11 PM EDT): Suspect groin strain, referral to physical therapy if no improvement will image and referral to ortho Tobacco use disorder 09/24/2024 Overview (09/24/2024): Motivated to cut down continue buproprion Hyperglycemia 06/20/2024 Assessment & Plan (08/18/2024 11:27 AM EDT): Labs as ordered below Exercise counseling 06/20/2024 Dietary counseling 06/20/2024 Assessment & Plan (08/18/2024 11:27 AM EDT): Dietary Recommendations: Fruits, vegetables, whole grains, protein foods, and fat-free or low-fat dairy products are healthy choices. Eat different types of protein foods in your diet. This can include seafood, lean meats, poultry, beans, peas, lentils, nuts, seeds, soy products, and eggs. Limit foods and beverages higher in added sugars, saturated fat, and sodium. Exercise Recommendations: At least 150 minutes of moderate-intensity physical activity per week, or an equivalent combination of moderate- and vigorous-intensity activity Mass of soft tissue of abdomen 06/20/2024 Assessment & Plan (08/18/2024 11:28 AM EDT): Ultrasound ordered Depression 06/20/2024 Assessment & Plan (09/24/2024 1:10 PM EDT): Increase buproprion, monitor for increased anxiety, may return to 100 mg SR bid if side effects occur with 300 mg XL Assessment & Plan (08/18/2024 11:27 AM EDT): Resume buproprion, monitor for anxiety or increased depression symptoms Encounters Date Type Department Care Team Description 09/24/2024 11:15 AM EDT Office Visit [facility] [address] [place] [phone] Tish Montague NP Hyperglycemia (Primary Dx); Left hip pain; Major depressive disorder in partial remission, unspecified whether recurrent (CMS/HCC); Tobacco use disorder 09/24/2024 Travel 09/14/2024 Patient Outreach [facility] [address] [place], [place] [phone] Tish Montague NP Pre-visit Planning (SDOH was already completed) 09/07/2024 Refill [facility] [address] [place] [phone] Tish Montague NP 08/28/2024 Results Follow-Up [facility] [address] [place] [phone] Katrina Dasilva RN US Abdomen Limited 08/28/2024 Orders Only [facility] [address] [place] [phone] Tish Montague NP Hernia of abdominal cavity (Primary Dx) from Last 3 Months Immunizations Immunization Administration Dates Next Due Tdap 08/09/2018 Social History Tobacco Use Types Packs/Day Years [...] Sign Reading Time Taken Comments Blood Pressure 122/84 09/24/2024 11:25 AM EDT Pulse 92 09/24/2024 11:25 AM EDT Temperature 35.3 C (95.5 F) 09/24/2024 11:25 AM EDT Respiratory Rate 16 09/24/2024 11:25 AM EDT Oxygen Saturation 96% 09/24/2024 11:25 AM EDT Inhaled Oxygen Concentration - - Weight 92.5 kg (204 lb) 09/24/2024 11:25 AM EDT Height 157.5 cm (5' 2 ) 09/24/2024 11:25 AM EDT Body Mass Index 37.31 09/24/2024 11:25 AM EDT Plan of Treatment Upcoming Encounters Date Type Department Care Team (Late st Contact Info) Description 12/25/2024 11:30 AM EDT Office Visit [facility] [address] [place] [address] Tish Montague, RAVINDRA [address] [place], [place] [phone] Health Maintenance Due Date Last Done Comments HIV Screening 1980 Family Planning (PISQ) 1995 HPV Vaccines (1 - 3-dose series) 1995 Hepatitis C Screening 1998 Hepatitis B Vaccines (1 of 3 - 19+ 3-dose series) 1999 Pneumococcal Vaccine: Pediatrics (0 to 5 Years) and At-Risk Patients (6 to 49) Years (1 of 2 - PCV) 1999 Pap Smear 2001 Cervical Cancer Screening 2010 HPV/Cotest 2010 Mammogram 2020 COVID-19 Vaccine (3 - 2023-2 5 season) 2023 05/26/2021, 05/05/2021 Influenza Vaccine (#1) 2024 Alcohol/Substance Use Screening 06/20/2025 06/20/2024 Depression Screening 06/20/2025 06/20/2024, 06/20/2024 Diabetes: Hemoglobin A1C 06/20/2025 025, 06/20/2024 SDOH Screening 06/20/2025 06/20/2024 Disability Screening 09/24/2025 09/24/2024 Tobacco Screening 09/24/2025 09/24/2024 DTaP/Tdap/Td Vaccines (2 - T d or [...] patient's age to complete this topic Meningococcal B Vaccine Aged Out No l onger eligible based on patient's age to complete [...] Procedure Name Priority Date/Time Associated Diagnosis Comments US ABDOMEN LIMITED Routine 08/13/2024 7: 42 PM EDT Mass of soft tissue of abdomen LIPID PANEL, STANDARD Routine 06/20/2024 10:03 AM EDT Hyperglycemia Other depression POCT GLYCATED HEMOGLOBIN, TOTAL Routine 06/20/2024 9:23 AM EDT Hyperglycemia from Last 3 Months or Most Recently Relevant to Health Maintenance Results * US Abdomen Limited (08/13/2024 7:42 PM EDT) Anatomical Region Laterality Modality Abdomen Ultrasound 08/13/2024 7:42 PM EDT Narrative 08/13/2024 7:43 PM EDT [place] [address] Ultrasound Report Signed Patient: Emperatriz Wilson MR#: [id number] : 1980 Acct:[id number] Age/Sex: 44 / F ADM Date: 08/13/24 Loc: HO.US Attending Dr: Tish Montague NP Ordering Physician: Tish Montague NP Date of Service: 08/13/24 Procedure(s): US abdomen limited Accession Number(s): [id number] cc: Tish Montague NP CLINICAL HISTORY: 8 CM SUM UMBILICAL PROTRUSION HX OF ABD SURGERY Ultrasound abdominal wall Comparison: None Findings: Periumbilical ventral hernia contains fat. Echogenic shadowing likely indicates bowel in hernia. Shadowing obscures findings and limits assessment. Impression: Periumbilical ventral hernia containing fat and bowel This document has been electronically signed by: Suman Davis MD on 08/13/2024 19:42:28 Dictated By: Suman Davis MD Signed By: <Electronically signed by Suman Davis MD in OV> 08/13/241942 DD/ 41 TD/TT: 08/13/241941 Paper Sorter: Procedure Note Donotuseinterpreter, Image - 08/13/2024 [place] [address] Ultrasound Report Signed Patient: Emperatriz Wilson LMR#: [id number] : 1980Acct:[id number] Age/Sex: 44 / FADM Date: 08/13/24 Loc: HO.US Attending Dr: Tish Montague NP Ordering Physician: Tish Montague NP Date of Service: 08/13/24 Procedure(s): US abdomen limited Accession Number(s): [id number] cc: Tish Montague NP CLINICAL HISTORY: 8 CM SUM UMBILICAL PROTRUSION HX OF ABD SURGERY Ultrasound abdominal wall Comparison: None Findings: Periumbilical ventral hernia contains fat. Echogenic shadowing likely indicates bowel in hernia. Shadowing obscures findings and limits assessment. Impression: Periumbilical ventral hernia containing fat and bowel This document has been electronically signed by: Suman Davis MD on 08/13/2024 19:42:28 Dictated By: Suman Davis MD Signed By: <Electronically signed by Suman Davis MD in OV> 08/13/241942 DD/ 41 TD/TT: 08/13/241941 Paper Sorter: us Tish Montague SENIOR HARDWARE ENGINEER IMG US PROCEDURES Final Result * Lipid Panel, Standard (06/20/2024 10:03 AM EDT) Triglycerides 57 <150 mg/dL [facility] Comment:Desirable Triglyceri de: less than 150 mg/dLBorderline High Triglyceride 150-199 mg/dLHigh Triglyceride: 200-499 mg/dLVery High Triglyceride: greater than or equal to 5OO mg/dL Cholesterol 156 <200 mg/dL [facility] Comment:Desirable Cholestero l: less than 200 mg/dLBorderline High Cholesterol: 200-239 mg/dLHigh Cholesterol: greater than 239 mg/dL LDL Cholesterol Calculated 99 <100 mg/dL [facility] Comment:Desirable LDL: less than 100 mg/dLNear Optimal/Above Optimal LDL: 110- 129 mg/dLBorderline High LDL: 130-159 mg/dLHigh LDL: 160-189 mg/dLVery High LDL: greater than or equal to 190 mg/dL HDL Cholesterol 46 >40 mg/dL [facility] Comment:Desirable HDL: great er than 40 mg/dL Note: This HDL assay may give artificially low results in patients with liver disease. Blood Venous blood specimen / Unknown 06/20/2024 10:03 AM EDT 06/20/2024 11:12 AM EDT Tish Montague SENIOR HARDWARE ENGINEER LAB BLOOD ORDERABLES Final Resul t [facility] [address] [place] [phone] * (ABNORMAL) POCT HGB A1C (06/20/2024 9:23 AM EDT) Hemoglobin A1C 6.1(A) 4.0 - 6.0 % QC Media Lot # [id number] Lot# Expiration Date ,42 Blood 06/20/2024 9:23 AM EDT Tish Montague SENIOR HARDWARE ENGINEER POINT OF CARE TEST ENTER/EDIT OR DERABLES Final Result from Last 3 Months or Most Recently Relevant to Health Maintenance Insurance [facility] C3 Care Teams Manager Architectural Relationship Specialty Start Date End Date Tish Montague NP [address] [place] [phone] PCP - General Family Medicine 06/20/24
== END 2024-11-08 10:00 | disposition home or self-care (01) ==
LOC: HO.HGS 09:23
PROVIDERS: PCP Nurse Practitioner Family; Visit Provider Surgery
DX: K43.9 Ventral hernia without obstruction or gangrene (principal)
CPT/HCPCS: 99204

== ENCOUNTER → 2024-11-08 09:22 | Outpatient (BNVA) | payer MEDICAID, SELFPAY | PROVIDERS: PCP Nurse Practitioner Family; Visit Provider Surgery | DX: K43.9 Ventral hernia without obstruction or gangrene (principal) | CPT/HCPCS: 99202 ==

== ENCOUNTER 2024-12-18 10:25 | Outpatient (RCR) | payer MEDICAID, SELFPAY | END 2025-02-11 08:29 | disposition home or self-care (01) | LOC: HO.PT 10:25 | PROVIDERS: PCP Nurse Practitioner Family; Visit Provider Nurse Practitioner Family | DX: M25.552 Pain in left hip (principal) | CPT/HCPCS: 97110; 97112; 97140; 97161; 97530 ==

== ENCOUNTER 2024-12-25 12:22 | Outpatient (REF) | payer MEDICAID, SELFPAY ==
--- OUTSIDE RECORDS SUMMARY | 2024-12-25 11:30 | XMS_ITS | Encounter Summary ---
Author Organization [employer] Address [address] [facility] 7[address] [place] [address] Care Team Providers Care Process Planner Name Role Phone Tish Montague NP Primary Care Provider [phone] Reason for Referral * Consultation (Routine) - Authorized Specialty Diagnoses / Procedures Referred By Clifton christina Referred To Contact Orthopaedic Surgery Diagnoses Chronic pain of left knee Tish Montague NP [address] [place] [address] Phone: tel: fax: [facility] [place] [facility] [address] [place] [address] Phone: tel: Referral ID Status Reason Start Date Expiration Date Visits Requested Visits Authorized [id number] Authorized Specialty Services Required 12/25/2024 12/25/2025 6 6 Reason for Visit * Reason Comments Follow-up Encounter Details Date Type Department Care Team (Latest Contact Info) Description 12/25/2024 11:30 AM EDT Office Visit [facility] [address] [place] [address] Tish Montague NP [address] [place] [address] Cervical cancer screening (Primary Dx); Encounter for removal of intrauterine contraceptive device (IUD); Chronic pain of left knee Social History Tobacco Use Types Packs/Day Years [...] Female 01/31/2024 1:41 PM EDT Sexual Orientation Straight 12/18/2024 9: 16 AM EDT documented as of this encounter Last Filed Vital Signs Vital Sign Reading Time Taken Comments Blood Pressure 124/80 12/25/2024 11:38 AM EDT Pulse 134 12/25/2024 11:38 AM EDT Temperature 36.1 C (97 F) 12/25/2024 11:38 AM EDT Respiratory Rate 26 12/25/2024 11:38 AM EDT Oxygen Saturation 99% 12/25/2024 11:38 AM EDT Inhaled Oxygen Concentration - - Weight 88.5 kg (195 lb 3.2 oz) 12/25/2024 11:38 AM EDT Height 157.5 cm (5' 2 ) 12/25/2024 11:38 AM EDT Body Mass Index 35.7 12/25/2024 11:38 AM EDT documented in this encounter Progress Notes * Tish Montague NP - 12/25/2024 11:30 AM EDTAssociated Order(s): IUD Management Post-Procedure Diagnose(s): Encounter for removal of intrauterine contraceptive device (IUD) Emperatriz Wilson is a 44 y.o. female who presents to the office for Chief Complaint Patient presents with Follow-up History of abnormal paps, has not had one for some time, no concerns re sti, history of abnormal cells and repeat paps but pt cannot recall when these occurred. IUD mirena, wants removal without replacement Estimated 5.5 years of this device. No longer with partner, aware can become immediately after removal No side effects with mirena Left hip pain, doing exercise improved but knee and lower leg get numb. Problem List[1] Medical History[2] Allergies[3] Review of Systems Constitutional: Negative for activity change and appetite change. Respiratory: Negative for apnea and chest tightness. Cardiovascular: Negative for chest pain. BP 124/80 (BP Location: Right arm, Patient Position: Sitting, BP Cuff Size: Adult) Pulse (!) 134 Temp 97 ??F (36.1 ??C) (Temporal) Resp 26 Ht 5' 2 (1.575 m) Wt 195 lb 3.2 oz (88.5 kg) SpO2 99% BMI 35.70 kg/m?? Physical Exam Vitals reviewed. HENT: Head: Normocephalic and atraumatic. Nose: Nose normal. Eyes: Conjunctiva/sclera: Conjunctivae normal. Cardiovascular: Rate and Rhythm: Normal rate and regular rhythm. Pulmonary: Effort: Pulmonary effort is normal. Breath sounds: Normal breath sounds. Abdominal: Hernia: There is no hernia in the right inguinal area. Genitourinary: Labia: Right: No rash. Vagina: Normal. Cervix: Erythema present. No discharge, lesion or cervical bleeding. Musculoskeletal: Cervical back: Normal range of motion and neck supple. Neurological: General: No focal deficit present. Mental Status: She is alert. Patient ID: Emperatriz Wilson is a 44 y.o. female. IUD Management Performed by: Tish Montague NP Authorized by: Tish Montague NP Procedure: IUD removal Reason for removal: patient request Tenaculum applied to cervix: no Cervix manually dilated: no IUD grasped by forceps: yes Performed with ultrasound guidance: no IUD removed: yes Date/Time of Removal: 12/25/2024 12:21 PM Removed without complications: yes IUD intact: yes Results: No visits with results within 28 Day(s) from this visit. Latest known visit with results is: Office Visit on 06/20/2024 Component Date Value Ref Range Status Glucose Blood, POC 06/20/2024 121 60 - 200 mg/dL Final QC Media Lot # 06/20/2024 [id number] Final Lot# Expiration Date 06/20/2024 82,625 Final Hemoglobin A1C 06/20/2024 6.1 (A) 4.0 - 6.0 % Final QC Media Lot # 06/20/2024 [id number] Final Lot# Expiration Date 06/20/2024 110,426 Final Sodium 06/20/2024 140 135 - 145 mmol/L Final Potassium 06/20/2024 4.6 3.3 - 5.1 mmol/L Final Chloride 06/20/2024 109 (H) 96 - 108 mmol/L Final Carbon Dioxide 06/20/2024 26 22 - 29 mmol/L Final Anion Gap 06/20/2024 10 (L) 12 - 20 Final Urea Nitrogen (BUN) 06/20/2024 10 9 - 16 mg/dL Final Creatinine, Serum 06/20/2024 0.73 0.5 - 1.4 mg/dL Final Estimated Glomerular Filt Rate 06/20/2024 >60 Final Chronic Kidney Disease: Estimated GFR < 60 mL/min/[id number] Kidney Disease: Estimated GFR < 15 mL/min/1.73m2 Glucose 06/20/2024 104 60 - 115 mg/dL Final Calcium 06/20/2024 9.2 8.4 - 10.2 mg/dL Final Bilirubin, Total 06/20/2024 0.3 0.0 - 1.0 mg/dL Final Aspartate Amino Transferase 06/20/2024 19 5 - 31 U/L Final Alanine Aminotransferase 06/20/2024 16 0 - 31 U/L Final Total Protein 06/20/2024 7.7 6.5 - 8.0 g/dL Final Albumin Level 06/20/2024 4.3 3.5 - 5.0 g/dL Final Alkaline Phosphatase 06/20/2024 62 39 - 117 U/L Final White Blood Count 06/20/2024 5.8 4.8 - 10.8 X10*3/uL Final Red Blood Count 06/20/2024 4.54 4.20 - 5.50 X10*6/uL Final Hemoglobin 06/20/2024 13.7 12.0 - 16.0 g/dl Final Hematocrit 06/20/2024 40.2 37.0 - 47.0 % Final Mean Corpuscular Volume 06/20/2024 88.5 80.0 - 98.0 fL Final Mean Corpuscular Hemoglobin 06/20/2024 30.2 27.0 - 33.0 pg Final Mean Corpuscular HGB Conc 06/20/2024 34.1 31.0 - 35.0 g/dl Final Red Cell Distribution Width 06/20/2024 12.6 11.0 - 16.0 % Final Platelet Count 06/20/2024 315 160 - 400 X10*3/uL Final Mean Platelet Volume 06/20/2024 10.1 9.4 - 12.3 fL Final Neutrophils Percent Auto 06/20/2024 59.2 45 - 73 % Final Imm Gran Pct Auto 06/20/2024 0.5 (H) 0.0 - 0.4 % Final Lymphocytes Percent Auto 06/20/2024 32.0 20 - 40 % Final Monocytes Percent Auto 06/20/2024 7.4 2 - 11 % Final Eosinophils Percent Auto 06/20/2024 0.7 0 - 4 % Final Basophils Percent Auto 06/20/2024 0.2 0 - 2 % Final NRBC Pct Auto 06/20/2024 0.0 0.0 - 0.2 /100WBC Final Neutrophils Absolute Auto 06/20/2024 3.5 2.0 - 8.3 x10*3/uL Final Imm Gran Abs Auto 06/20/2024 0.03 0.00 - 0.03 X10*3/uL Final Lymphocytes Absolute Auto 06/20/2024 1.9 1.2 - 4.9 X10*3/uL Final Monocytes Absolute Auto 06/20/2024 0.4 0.1 - 1.2 X10*3/uL Final Eosinophils Absolute Auto 06/20/2024 0.0 0.0 - 0.4 X10*3/uL Final Basophils Absolute Auto 06/20/2024 0.0 0.0 - 0.2 X10*3/uL Final NRBC Abs Auto 06/20/2024 0.000 0.0 - 0.012 X10*3/uL Final Hemoglobin A1c 06/20/2024 5.8 <6.0 % Final Hemoglobin A1C Reference Range Adults: 4.8 - 6.0 % Non diabetic: < 6.0 % Goal: < 7.0 %Additional Action Suggested: > 8.0 %Note: Hemoglobin A1c results are invalid for patients with abnormal amounts of HbF. Blood transfusions may impact the HbA1c concentration in the patient sample. Estimated Average Glucose 06/20/2024 120 mg/dL Final eAG = Estimated average glucose which is %A1C expressed asaverage glucose, using the formula of the H6D-QansioxQierlcs Glucose study (ADAG), Diabetes Care, Vol.31,#8,Nov. 2007 Triglycerides 06/20/2024 57 <150 mg/dL Final Desirable Triglyceride: less than 150 mg/dLBorderline High Triglyceride 150-199 mg/dLHigh Triglyceride: 200-499 mg/dLVery High Triglyceride: greater than or equal to 5OO mg/dL Cholesterol 06/20/2024 156 <200 mg/dL Final Desirable Cholesterol: less than 200 mg/dLBorderline High Cholesterol: 200-239 mg/dLHigh Cholesterol: greater than 239 mg/dL LDL Cholesterol Calculated 06/20/2024 99 <100 mg/dL Final Desirable LDL: less than 100 mg/dLNear Optimal/Above Optimal LDL: 110-129 mg/dLBorderline High LDL:130-159 mg/dLHigh LDL: 160-189 mg/dLVery High LDL: greater than or equal to 190 mg/dL HDL Cholesterol 06/20/2024 46 >40 mg/dL Final Desirable HDL: greater than 40 mg/dL Note: This HDL assay may give artificially low results in patients with liver disease. Assessment & Plan Cervical cancer screening Pap and hpv testing ordered Orders: HPV High Risk with Reflex to Subtypes Pap Smear Encounter for removal of intrauterine contraceptive device (IUD) Removed without complication Chronic pain of left knee Referral to ortho Orders: Referral to Orthopaedic Surgery; Future Current Medications[4] [1] Patient Active Problem List Diagnosis Hyperglycemia Exercise counseling Dietary counseling Mass of soft tissue of abdomen Depression Left hip pain Tobacco use disorder [2] No past medical history on file. [3] Allergies Allergen Reactions Sulfa Antibiotics Unknown [4] Current Outpatient Medications: buPROPion XL (Wellbutrin XL) 300 MG 24 hr tablet, Take 1 tablet (300 mg) by mouth Once per day. Do not crush, chew, or split., Disp: 30 tablet, Rfl: 3 documented in this encounter Miscellaneous Notes * Assessment & Plan Note - Tish Montague NP - 12/25/2024 11:30 AM EDTAssociated Problem(s): Cervical cancer screening Pap and hpv testing ordered Orders: HPV High Risk with Reflex to Subtypes Pap Smear * Assessment & Plan Note - Tish Montague NP - 12/25/2024 11:30 AM EDTAssociated Problem(s): Encounter for removal of intrauterine contraceptive device (IUD) Removed without complication * Assessment & Plan Note - Tish Montague NP - 12/25/2024 11:30 AM EDTAssociated Problem(s): Chronic pain of left knee Referral to ortho Orders: Referral to Orthopaedic Surgery; Future documented in this encounter Plan of Treatment Scheduled Orders Name Type Priority Associated Diagnoses Orde r Schedule HPV High Risk with Reflex to Subtypes Lab Routine Cervical cancer screening Ordered: 12/25/2024 Pap Smear Pathology and Cytology Routine Cervical cancer screening Ordered: 12/25/2024 Scheduled Referrals Name Type Priority Associated Diagnoses Order Schedule Referral to Orthopaedic Surgery Outpatient Referral Routine Chronic pain of left knee Expected: 12/25/2024 (Approximate), Expires: 12/25/2025 documented as of this encounter Procedures Procedure Name Priority Date/Time Associated Diagnosis Comments AR REMOVAL INTRAUTERINE DEVICE IUD Routine 12/25/2024 11:30 AM EDT Encounter for removal of intrauterine contraceptive device (IUD) documented in this encounter Results * AR REMOVAL INTRAUTERINE DEVICE IUD (12/25/2024 11:30 AM EDT) Narrative Tish Montague NP - 12/25/2024 11:30 AM EDT Tish Montague NP 12/25/2024 12:22 PM IUD Management Performed by: Tish Montague NP Authorized by: Tish Montague NP Procedure: IUD removal Reason for removal: patient request Tenaculum applied to cervix: no Cervix manually dilated: no IUD grasped by forceps: yes Performed with ultrasound guidance: no IUD removed: yes Date/Time of Removal: 12/25/2024 12:21 PM Removed without complications: yes IUD intact: yes us Tish Montague NP IN CLINIC/BEDSIDE ORDERABLES Fin al Result documented in this encounter Visit Diagnoses Diagnosis Cervical cancer screening- Primary Screening for malignant neoplasm of the cervix Encounter for removal of intrauterine contraceptive device (IUD) Chronic pain of left knee documented in this encounter Additional Health Concerns Assessment Noted Time PHQ-9 Depression Total Score: 8 06/21/19 9:26 AM EDT documented as of this encounter Care Teams Process Planner Relationship Specialty Start Date End Date Tish Montague NP [address] [place] [id number] PCP - General Family Medicine 06/20/24 documented as of this encounter
--- OUTSIDE RECORDS SUMMARY | 2024-12-26 15:12 | XMS_ITS | Clinical Summary ---
Author Organization [employer] Address [address] [facility] [address] [place] [address] Care Team Providers Care Electric Wheelchair Repairer Name Role Phone Barbara Montagueily RAVINDRA Primary Care Provider [phone] Allergies Active Allergy Reactions Criticality Noted Date Comments Sulfa Antibiotics Unknown 06/20/2024 Medications buPROPion XL (Wellbutrin XL) 300 MG 24 hr tablet Take 1 tablet (300 mg) by mouth Once per day. Do not crush, chew, or split. 30 tablet 3 09/24/2024 5 Active Active Problems Problem Noted Date Diagnosed Date Cervical cancer screening 12/25/2024 Assessment & Plan (12/25/2024 12:22 PM EDT): Pap and hpv testing ordered Orders: HPV High Risk with Reflex to Subtypes Pap Smear Encounter for removal of int rauterine contraceptive device (IUD) 12/25/2024 Assessment & Plan (12/25/2024 12:22 PM EDT): Removed without complication Chronic pain of left knee 12/25/2024 Assessment & Plan (12/25/2024 12:22 PM EDT): Referral to ortho Orders: Referral to Orthopaedic Surgery; Future Left hip pain 09/24/2024 Assessment & Plan [...] Encounters Date Type Department Care Team Description 12/25/2024 11:30 AM EDT Office Visit [facility] [address] [place] [address] Tish Montague NP Cervical cancer screening (Primary Dx); Encounter for removal of intrauterine contraceptive device (IUD); Chronic pain of left knee 12/25/2024 Travel 12/24/2024 Telephone [facility] [address] [place] [address] Elie Ball MA chart prep 12/18/2024 Travel from Last 3 Months Immunizations Immunization Administration [...] Orientation Straight 12/18/2024 9: 16 AM EDT Last Filed Vital Signs Vital Sign [...] Mass Index 35.7 12/25/2024 11:38 AM EDT Plan of Treatment Health Maintenance [...] 2010 Mammogram 2020 COVID-19 Vaccine (3 - 2024-2 6 season) 2024 05/26/2021, 05/05/2021 Influenza Vaccine (#1) 2024 Alcohol/Substance Use Screening 06/20/2025 06/20/2024 Depression Screening 06/20/2025 06/20/2024, 06/20/2024 Diabetes: Hemoglobin A1C 06/20/2025 025, 06/20/2024 SDOH Screening 06/20/2025 06/20/2024 Disability Screening 12/18/2025 12/18/2024 Tobacco Screening 12/25/2025 12/25/2024 DTaP/Tdap/Td Vaccines (2 - T d or [...] Procedure Name Priority Date/Time Associated Diagnosis Comments HI REMOVAL INTRAUTERINE DEVICE IUD Routine 12/25/2024 11:30 AM EDT Encounter for removal of intrauterine contraceptive device (IUD) LIPID PANEL, STANDARD Routine 06/20/2024 10:03 AM EDT Hyperglycemia Other depression POCT GLYCATED HEMOGLOBIN, TOTAL Routine 06/20/2024 9:23 AM EDT Hyperglycemia from Last 3 Months or Most Recently Relevant to Health Maintenance Results * HI REMOVAL INTRAUTERINE DEVICE IUD (12/25/2024 11:30 AM EDT) Tish Mabry NP - 12/25/2024 11:30 AM EDT Tish [...] NP IN CLINIC/BEDSIDE ORDERABLES Fin al Result * Lipid Panel, Standard (06/20/2024 10:03 AM EDT) Triglycerides 57 <150 mg/dL [facility] Comment:Desirable Triglyceri de: less than 150 mg/dLBorderline High Triglyceride 150-199 mg/dLHigh Triglyceride: 200-499 mg/dLVery High Triglyceride: greater than or equal to 5OO mg/dL Cholesterol 156 <200 mg/dL [facility] Comment:Desirable Cholestero l: less than 200 mg/dLBorderline High Cholesterol: 200-239 mg/dLHigh Cholesterol: greater than 239 mg/dL LDL Cholesterol Calculated 99 <100 mg/dL [facility] Comment:Desirable LDL: less than 100 mg/dLNear Optimal/Above Optimal LDL: 110- 129 mg/dLBorderline High LDL: 130-159 mg/dLHigh LDL: 160-189 mg/dLVery High LDL: greater than or equal to 190 mg/dL HDL Cholesterol 46 >40 mg/dL [facility] Comment:Desirable HDL: great er than 40 mg/dL Note: This HDL assay may give artificially low results in patients with liver disease. Blood Venous blood specimen / Unknown 06/20/2024 10:03 AM EDT 06/20/2024 11:12 AM EDT Tish Montague NP LAB BLOOD ORDERABLES Final Resul t [facility] [address] [place] [address] [phone] * (ABNORMAL) POCT HGB A1C (06/20/2024 9:23 AM EDT) Hemoglobin A1C 6.1(A) 4.0 - 6.0 % QC Media Lot # [id number] Lot# Expiration Date Blood 06/20/2024 9:23 AM EDT Tish Montague NP POINT OF CARE TEST ENTER/EDIT OR DERABLES Final Result from Last 3 Months or Most Recently Relevant to Health Maintenance [facility] Care Teams Electric Wheelchair Repairer Relationship Specialty Start Date End Date Tish Montague NP [address] [place] [address] PCP - General Family Medicine 06/20/24
--- OUTSIDE RECORDS SUMMARY | 2024-12-26 15:12 | XMS_ITS | Encounter Summary ---
Author Organization [employer] Address [address] [address] Care Team Providers Care Drop Wirer Name Role Phone Tish Montague RAVINDRA Primary Care Provider [phone] Encounter Details Date Type Department Care Team (Latest Contact Info) Description 12/25/2024 Travel Social History Tobacco Use Types Packs/Day [...] AM EDT documented as of this encounter Plan of Treatment Not on file documented as of this encounter Visit Diagnoses Not on filedocumented in this encounter Additional Health Concerns Assessment Noted Time PHQ-9 Depression Total Score: 8 06/21/19 9:26 AM EDT documented as of this encounter Care Teams Drop Wirer Relationship Specialty Start Date End Date Tish Montague NP [address] [place] [address] PCP - General Family Medicine 06/20/24 documented as of this encounter
--- OUTSIDE RECORDS SUMMARY | 2024-12-26 15:12 | XMS_ITS | Encounter Summary ---
Author Organization [employer] Address [address] [place] [address] Care Team Providers Care Tugboat Mate Name Role Phone Tish Montague NP Primary Care Provider [phone] Reason for Visit * Reason Onset Date Comments chart prep 12/24/2024 Encounter Details Date Type Department Care Team ([facility] st Contact Info) Description 12/24/2024 Telephone [facility] [address] [place] [address] Elie Ball MA chart prep Social History Tobacco Use Types Packs/Day Years [...] AM EDT documented as of this encounter Miscellaneous Notes * Telephone Encounter - Elie Ball MA - 12/24/2024 1:07 PM EDT Chart Prep Labs: done Images: done Referrals: [facility] 08/13/24 10:30 AM [facility] 10/09/24 1:30 PM [facility] General Surgeons Rober Guillen MD [facility] 11/08/24 9:30 AM [facility] General Surgeons Rober Guillen MD Vaccines due: Covid, Flu, PCV20, Hep B, and HPV Screenings: pap smear,mammogram Overdue care gaps: Tobacco documented in this encounter Plan of Treatment Not on file documented as of this encounter Visit Diagnoses Not on filedocumented in this encounter Additional Health Concerns Assessment Noted Time PHQ-9 Depression Total Score: 8 06/21/19 25 9:26 AM EDT documented as of this encounter Care Teams Tugboat Mate Relationship Specialty Start Date End Date Tish Montague NP [address] [place] [id number] PCP - General Family Medicine 06/20/24 documented as of this encounter
== END 2024-12-25 12:23 | disposition home or self-care (01) ==
LOC: HO.LNP 12:22
PROVIDERS: Visit Provider Nurse Practitioner Family
DX: Z12.4 Encounter for screening for malignant neoplasm of cervix (principal); Z11.51 Encounter for screening for human papillomavirus (HPV)
CPT/HCPCS: 87626; 88175

== ENCOUNTER 2025-02-19 08:17 | Outpatient (REF) | payer MEDICAID, SELFPAY ==
--- NOTE | ~2025-02-19 | XR_ITS ---
EXAMINATION: XR KNEE, LEFT CLINICAL INFORMATION: M25.562 - Pain in left knee COMPARISON: None available. TECHNIQUE: Three views of the left knee. FINDINGS: No fracture or joint effusion. Alignment is anatomic. Joint spaces are maintained. No abnormal soft tissue calcification. XR/XR knee LT 3V IMPRESSION: No acute findings Electronically signed by: Kayode Ying MD 02/19/2025 12:57 PM EST
--- OUTSIDE RECORDS SUMMARY | 2025-02-20 15:54 | XMS_ITS | Clinical Summary ---
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 DO NOT CRUSH, CHEW OR SPLIT. 30 tablet 3 5 Active buPROPion XL (Wellbutrin XL) 300 MG 24 hr tablet Take 1 tablet (300 mg) by mouth Once per day. Do not crush, chew, or split. 30 tablet 3 5 01/23/20 25 Discontinued Active Problems Problem Noted Date Diagnosed Date [...] Encounters Date Type Department Care Team Description 01/22/2025 Refill [facility] [address] [place] [address] Tish Montague NP 12/25/2024 11:30 AM EDT Office Visit [facility] [address] [place] [address] Tish Montague NP Cervical cancer screening (Primary Dx); Encounter for removal of intrauterine contraceptive device (IUD); Chronic pain of left knee 12/25/2024 Travel 12/24/2024 Telephone [facility] [address], [place] [phone] Elie Ball MA chart prep 12/18/2024 Travel [...] Years (1 of 2 - PCV) 1999 Mammogram 2020 COVID-19 Vaccine (3 - 2024-2 6 season) 2024 05/26/2021, 05/05/2021 Influenza Vaccine (#1) 2024 Alcohol/Substance Use Screening 06/20/2025 06/20/2024 Depression Screening 06/20/2025 06/20/2024, 06/20/2024 Diabetes: Hemoglobin A1C 06/20/2025 025, 06/20/2024 SDOH Screening 06/20/2025 06/20/2024 Disability Screening 12/18/2025 12/18/2024 Tobacco Screening 12/25/2025 12/25/2024 Pap Smear 12/26/2027 12/25/2024 DTaP/Tdap/Td Vaccines (2 - T d or Tdap) 08/09/2028 08/09/2018 Lipid Panel 06/20/2029 06/20/2024 Cervical Cancer Screening 12/25/2029 HPV/Cotest 12/25/2029 12/25/2024 Zoster Vaccines (1 of 2) 2030 RSV [...] Procedure Name Priority Date/Time Associated Diagnosis Comments PAP SMEAR Routine 12/25/2024 12:22 PM EDT Cervical cancer screening HPV DNA, LOW/HIGH RISK Routine 12/25/2024 12:22 PM EDT Cervical cancer screening [place] REMOVAL INTRAUTERINE DEVICE IUD Routine 12/25/2024 11:30 AM EDT Encounter for removal of intrauterine contraceptive device (IUD) LIPID PANEL, STANDARD Routine 06/20/2024 10:03 AM EDT Hyperglycemia Other depression POCT GLYCATED HEMOGLOBIN, TOTAL Routine 06/20/2024 9:23 AM EDT Hyperglycemia from Last 3 Months or Most Recently Relevant to Health Maintenance Results * (ABNORMAL) HPV High Risk with Reflex to Subtypes (12/25/2024 12:22 PM EDT) HPV High Risk Negative Negative [facility] HPV Genotype 16 Positive(A) Negative [facility] HPV Genotype 18 Negative Negative [facility] Comment:HPV testing performe d at [facility] (CLIA#[id number]), [address] [place] [id number].Testing for HPV was performed using the [employer]Creative0system. The presence of HPV in the female genital tract isassociated with a number of diseases, including cervicalcarcinoma. The HPV DNA high risk pool tests for HPV 31, 33,35, 39, 45, 51, 52, 56, 58, 59, 66 and 68. The testing forHPV 16 and 18 genotypes has also been performed. A positiveresult indicates detection of nucleic acid sequences fromone or more subtypes, whereas a negative result indicatessuch sequences were not detected. Pap Vial 12/25/2024 12:2 2 PM EDT 12/26/2024 11:28 AM EDT us Tish Montague NP LAB BLOOD ORDERABLES Final Resul t [facility] [address] [place] [phone] * Pap Smear (12/25/2024 12:22 PM EDT) Swab Cervix uteri structure / Unknown 12/25/2024 12:22 PM EDT 12/26/2024 11:28 AM EDT Kendy [facility] - 01/02/2025 8:09 AM EDT ----- ------- Name: Emperatriz Wilson Age/Sex: 44/F : 1980 Unit#: [id number] Attend Dr: Tish Montague NP Re12/25/24 Status: DEP REF Location: [facility] Disch: ----- ------- SPEC : [id number] RECD: 12/26/24 STATUS: ALONA STODDARD NUM: [id number] DAVE: 12/25/24-1222 [facility] DR: Tish Montague VIDEO NETWORK ENGINEER ENTERED: 12/26/24-1325 SP TYPE: Pap Smr LUBA DR: ORDERED: Pap Smear, PAP path review Interpretation General Category: Epithelial cell abnormality. Adequacy: Endocervical component present. Interpretation: Atypical squamous cells of undetermined significance, cannot rule out high grade lesion. HPV High Risk: Negative HPV Genotyping 16: Positive HPV Genotyping 18: Negative Clinical Information LMP:Unknown date, IUD Previous PAP test: Unknown date, abnormal (not specified) Other history: Cervical cancer screening Material Received ThinPrep-Cervical PAP Disclaimer As of January 25, 2024, the technical services to include automated prescreening performed by the ThinPrep Imaging System, PAP screening and HPV testing will be performed at [facility] (CLIA #[id number]), [address] [place] [address]. Testing for HPV was performed using the [employer] N[employer] 6800 system. The presence of HPV in the female genital tract is associated with a number of diseases, including cervical carcinoma. The HPV DNA high risk pool tests for HPV 31, 33, 35, 39, 45, 51, 52, 56, 58, 59, 66 and 68. The testing for HPV 16 and 18 genotypes has also been performed. A positive result indicates detection of nucleic acid sequences from one or more subtypes, whereas a negative result indicates such sequences were not detected. All professional services are performed by [facility] ([address] [place] [id number]; ; CLIA #[id number]). The PAP Test is a screening procedure with the inherent possibility of both false negative and false positive results. Results should be interpreted in the context of historic and current clinical findings. Reliability of the PAP Test is enhanced by performing the test on a regular repetitive basis. CONTINUED ON NEXT PAGE ----- ------- Name: Emperatriz Wilson Age/Sex: 44/F : 1980 Unit#: [id number] Attend Dr: Tish Montague VIDEO NETWORK ENGINEER Re12/25/24 Status: DEP REF Location: [facility] Disch: ----- ------- SPEC : [id number] RECD: 12/26/24-1127 STATUS: ALONA STODDARD NUM: [id number] DAVE: 12/25/24-1222 [facility] DR: Tish Montague VIDEO NETWORK ENGINEER ENTERED: 12/26/24-1325 SP TYPE: Pap Lisbeth CRUZ DR: ORDERED: Pap Smear, PAP path review ----- ------- Signed (signature on file) lEia Redding MD 01/02/25 0809 ----- ------- END OF REPORT us Tish Montague NP LAB CYTOLOGY ORDERABLES Final Re sult [facility] [address] [place] [phone] * [place] REMOVAL INTRAUTERINE DEVICE IUD (12/25/2024 11:30 AM [...] yes IUD intact: yes us Tish Montague VIDEO NETWORK ENGINEER IN CLINIC/BEDSIDE ORDERABLES Fin al Result * Lipid Panel, Standard (06/20/2024 10:03 AM EDT) Triglycerides 57 <150 mg/dL [facility] Comment:Desirable Triglyceri de: less than 150 mg/dLBorderline High Triglyceride 150-199 mg/dLHigh Triglyceride: 200-499 mg/dLVery High Triglyceride: greater than or equal to 5OO mg/dL Cholesterol 156 <200 mg/dL [facility] Comment:Desirable Cholestero l: less than 200 mg/dLBorderline High Cholesterol: 200-239 mg/dLHigh Cholesterol: greater than 239 mg/dL LDL Cholesterol Calculated 99 <100 mg/dL [facility] Comment:Desirable LDL: less than 100 mg/dLNear Optimal/Above Optimal LDL: 110- 129 mg/dLBorderline High LDL: 130-159 mg/dLHigh LDL: 160-189 mg/dLVery High LDL: greater than or equal to 190 mg/dL HDL Cholesterol 46 >40 mg/dL [facility] Comment:Desirable HDL: great er than 40 mg/dL Note: This HDL assay may give artificially low results in patients with liver disease. Blood Venous blood specimen / Unknown 06/20/2024 10:03 AM EDT 06/20/2024 11:12 AM EDT Tish Montague VIDEO NETWORK ENGINEER LAB BLOOD ORDERABLES Final Resul t [facility] [address] [place] [phone] * (ABNORMAL) POCT HGB A1C (06/20/2024 9:23 AM EDT) Hemoglobin A1C 6.1(A) 4.0 - 6.0 % QC Media Lot # [id number] Lot# Expiration Date ,42 Blood 06/20/2024 9:23 AM EDT Tish Montague VIDEO NETWORK ENGINEER POINT OF CARE TEST ENTER/EDIT OR DERABLES Final Result from Last 3 Months or Most Recently Relevant to Health Maintenance Insurance [facility] C3 Care Teams Kitchen Food Server Relationship Specialty Start Date End Date Tish Montague NP [address] [place] [address] PCP - General Family Medicine 06/20/24
== END 2025-02-19 08:18 | disposition home or self-care (01) ==
LOC: HO.HOSX 08:17
PROVIDERS: Visit Provider Orthopaedic Surgery
DX: M25.562 Pain in left knee (principal); G89.29 Other chronic pain; M54.50 Low back pain, unspecified; M79.605 Pain in left leg; Z79.899 Other long term (current) drug therapy
CPT/HCPCS: 73562

== ENCOUNTER 2025-02-19 08:54 | Outpatient (AMB) | payer MEDICAID, SELFPAY ==
--- NOTE | 2025-02-19 08:56 | MHC.OFFVIS ---
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 The patient states that she 1st injured her low back approximately 20 years ago. She was told at that time that she has a ?herniated disc?. She did not undergo surgery at that time. She has been to formal physical therapy which gave her minimal relief. Her low back pain has gotten worse over the last year in spite of continued non operative treatments. She has failed the last 6 weeks of conservative treatment which has included Tylenol, anti-inflammatory medicines, physical therapy exercises and a home exercise program. She describes her left kn Allergies Sulfa (Sulfonamide Antibiotics) (Sulfa (Sulfonamides)) Allergy (Unknown, Verified 02/19/25 09:13) HIVES, rash amoxicillin Allergy (Verified 02/19/25 09:13) Rash Sulfas Allergy (Unknown, Uncoded 02/19/25 09:13) Hives Medication List - Last Reconciled 02/19/25 by Jaun Weeks MD acetaminophen (Tylenol Extra Strength) 500 mg PO Q6H PRN bupropion HCl XL 300 mg PO DAILY clindamycin HCl 300 mg PO TID 7 days ibuprofen 600 mg PO Q6H PRN PFSH Surgical History (Updated 11/08/24 @ 09:31 by Brittny Daiz Lily) Hx of section Hx laparoscopic cholecystectomy Social History (Updated 02/19/25 @ 09:14 by Leesa Smith [facility]) Alcohol intake: never Patient Tobacco Use Status: Current everyday Tobacco user Tobacco use type: Cigar Cigarette Packs Per Day: 0.5 Substance Use Type: Marijuana Physical Exam Vital Signs: BMI result Body Mass Index 37.9 Const Other: Well-nourished well-developed very friendly female awake alert and oriented x3 in no acute distress Back/Spine/Pelvis Other: Low back examination shows left-sided paraspinal muscle tenderness, pain with range of motion, positive straight leg raise test on the left at 70 degrees, 4/5 strength with testing of her left hip flexors and knee extensors when compared to 5/5 strength on her right side Extrem Other: Left knee examination shows a minimal effusion, minimal crepitus with range of motion, tenderness along her medial joint line, positive Emanuel's test, no instability Results Reviewed Results Reviewed: X-rays of the patient's left knee show mild diffuse joint space narrowing, no acute bony abnormalities Assessment & Plan Assessment & Plan (1) Low Back Pain: Code(s): M54.50 - Low back pain, unspecified (2) Low back pain radiating to left leg: Code(s): M54.50 - Low back pain, unspecified; M79.605 - Pain in left leg Category: Medical Plan Ms. Wilson presents with progressively worsening low back pain which radiates down her left leg as well as associated left leg weakness possibly due to lumbar stenosis or a disc herniation. Thus, I will send the patient for an MRI of her lumbar spine for further evaluation. I will contact her by phone once the MRI results are available. The patient also has intermittent left knee discomfort possibly due to a medial meniscus tear. We will hold off on an MRI of her knee at this time. Feel free to call me at any time should questions regarding her orthopedic management arise. I spent 22 minutes in reviewing the patient's records and imaging studies, seeing the patient and documenting in the medical record. Orders: Orders XR knee LT 3V 02/19/25 M25.562 - Pain in left knee MR lumbar spine wo con Today M54.50 - Low back pain, unspecified, M79.605 - Pain in left leg Coding Level of Care Code New Pt Level 3 (75550) Complex EM visit Add On G2211 Diagnoses Low Back Pain M54.50 Low back pain radiating to left leg M54.50; M79.605
[2025-02-19 09:13] VITALS: BMI 37.9
== END 2025-02-19 09:33 | disposition home or self-care (01) ==
LOC: HO.HOS 08:55
PROVIDERS: PCP Nurse Practitioner Family; Visit Provider Orthopaedic Surgery
DX: M54.50 Low back pain, unspecified (principal); M79.605 Pain in left leg
CPT/HCPCS: 99203

== ENCOUNTER → 2025-02-19 09:06 | Outpatient (BNV) | payer MEDICAID, SELFPAY | PROVIDERS: Visit Provider Radiology Diagnostic Ultrasound | DX: M25.562 Pain in left knee (principal) | CPT/HCPCS: 73562 ==